=== PATIENT | male | born 1990 | race American Indian/Alaskan Native ===

== ENCOUNTER 2023-06-10 14:20 | Emergency (ER) | payer MEDICAID ==
[~2023-06-10] VITALS: Ht 182.9 cm; Wt 98.6 kg
[~2023-06-10 14:20] MED LIST: HYDR-4383 PO
[2023-06-10 14:23] VITALS: BP 163/106; PULSE 89; RESP 20; TEMP 97; O2SAT 96
== END 2023-06-10 15:00 | disposition home or self-care (01) ==
LOC: ER 14:20
DX: F10.20 Alcohol dependence, uncomplicated (principal); F12.90 Cannabis use, unspecified, uncomplicated; Y90.9 Presence of alcohol in blood, level not specified
CPT/HCPCS: 99281

== ENCOUNTER 2024-12-14 11:20 | Emergency (ER) | payer MEDICAID ==
[~2024-12-14] VITALS: Ht 182.9 cm; Wt 91.0 kg
[2024-12-14 11:29] VITALS: BP 165/107; PULSE 87; RESP 18; O2SAT 99
--- NOTE | 2024-12-14 12:16 | RADIOLOGY REPORT ---
EXAM: DI SHOULDER, COMPLETE (MIN 2 VWS) HISTORY: pain COMPARISON: None TECHNIQUE: 2 views of the left shoulder were performed. FINDINGS: No acute fracture or dislocation are identified about the left shoulder. There is mild acromioclavic ular hypertrophy without significant loss of subacromial space. IMPRESSION: 1. No fracture of the left shoulder. 2. Mild acromioclavicular hypertrophy.
--- NOTE | 2024-12-14 12:22 | Physician Documentation ---
History of Present Illness ~ Chief Complaint: Shoulder pain Stated Complaint: SHOULDER PAIN Time Seen by MD: 11:56 Primary Medical Doctor: SAMI ARELLANO HPI 34-year-old male with a history of chronic left shoulder pain presents to the emergency department reporting that the episodes of pain has been more frequent. He denies recent injury, but notes that he has worked hard his whole life. Tetanus within 5 years?: Yes Medication Reconciliation Allergies: Coded Allergies: No Known Allergies (Unverified , 12/12/23) Scheduled Ibuprofen* (Motrin*), 800 MG PO Q8H Triamcinolone Acetonide 0.5% Crm* (Kenalog 0.5% Crm*), 1 APPLIC TOP Q12H Scheduled PRN Hydrocodone/Acetaminophen ([place] 5-325 Tablet), 1 TABLET PO TID PRN for pain Review of Systems ROS As stated above in the HPI, otherwise all systems are reviewed and negative. Physical Exam Vital Signs: Temperature: 98.3, Source: Oral, Heart Rate: 87, Respiratory Rate: 18, BP: 165/107, Pulse Oximetry: 99, Weight: 91.000 Physical Exam General: Alert, no apparent distress. HEENT: PERRL, EOMI, no injection, moist mucous membranes. Neck: Full range of motion. Respiratory: Lungs clear, no respiratory distress. Chest: No accessory muscle use. Cardiovascular: Regular rate and rhythm, no murmurs. Gastrointestinal: Soft, nontender, nondistended. Bowels sounds present. Extremities: Mildly reduced left shoulder range of motion. Strong radial pulse. Neurologic: Oriented x4. Psychiatric: Normal mood and affect. Skin: Normal color, warm and dry. No edema, no ecchymosis. Progress Results/Orders Results/Orders Orders - STEFANIE CANTU NP Shoulder, Complete (Min 2 Vws) (12/14/24 11:55) Completed Orders - STEFANIE CANTU NP Shoulder, Complete (Min 2 Vws) (12/14/24 11:55) Vital Signs 12/14/24 12/14/24 11:29 12:43 Temp 98.3 98.3 Pulse 87 Resp 18 B/P (MAP) 165/107 Pulse Ox 99 EKG/XRAY/CT/US/VASC/MRI Bone/Soft Tissue X-Ray (Spine) : Additional Comment DIAGNOSTIC RADIOLOGY Patient: PLACIDO PERAZA Medical Record: [id number] [facility] : 1990, Age: 34 Sex: Male Location: ER Patient Status: REG ER Service Date/Time: 12/14/241154 Ordering Physician: STEFANIE CANTU NP Exam: SHOULDER, COMPLETE (MIN 2 VWS) EXAM: DI SHOULDER, COMPLETE (MIN 2 VWS) HISTORY: pain COMPARISON: None TECHNIQUE: 2 views of the left shoulder were performed. FINDINGS: No acute fracture or dislocation are identified about the left shoulder. There is mild acromioclavicular hypertrophy without significant loss of subacromial space. IMPRESSION: 1. No fracture of the left shoulder. 2. Mild acromioclavicular hypertrophy. Electronically Signed by:ANNIE MARK MD Date & Time: 12/14/241212 Dictated by: ANNIE MARK MD Dictation date and time: 12/14/241212 Primary Care Provider: NO PRIMARY CARE PROVIDER cc: STEFANIE CANTU NP ~ Medical Decision Making Additional Comments This appears to be an impingement syndrome. Discussed with the patient that he would benefit from a referral to physical therapy, and then potentially a referral for an hr specialist consultation and an MRI if improvement was not seen. Meanwhile, he may use ibuprofen as needed for pain, and should gently exercise the shoulder to avoid frozen shoulder. He is to return if worse. Departure Time of Disposition: 12:21 Disposition: 01 HOME / SELF CARE / HOMELESS Impression: Primary Impression: Shoulder pain Qualified Codes: M25.512 - Pain in left shoulder; G89.29 - Other chronic pain Additional Impressions: Impingement syndrome of left shoulder Rash Condition: Stable Discharge Instructions: Contact Dermatitis, Shoulder Impingement Syndrome, Shoulder Pain Additional Instructions: Please see your primary care provider soon and request a referral to physical therapy. If this is the 1st needed steps before further intervention such as an MRI or a referral to an orthopedist. You may use ibuprofen 800 mg up to 3 times a day with food for the next week as needed for pain. See the attached handout with instructions for exercises. Please return if worse. Referrals: NO PRIMARY CARE PROVIDER (PCP) Prescriptions Ibuprofen* (Motrin*) 400 Mg Tablet 800 MG PO Q8H for 14 Days, #60 TAB Prov: STEFANIE CANTU NP 12/14/24 Triamcinolone Acetonide 0.5% Crm* (Kenalog 0.5% Crm*) 15 Gm Tube 1 APPLIC TOP Q12H for 14 Days, #15 GM apply to affected area(s) Prov: STEFANIE CANTU NP 12/14/24 Education Educated: Patient Educated regarding: diagnosis, treatment, prognosis, need for follow up Signature Scribe Signature: No scribe Attestation: The note accurately reflects work and decisions made by me.Stefanie Walker NP 12/14/24 12:51 STEFANIE CANTU NP December 14, 2024 12:22
[2024-12-14] MEDS ORDERED: IBUP-1984 PO (12:26)
[2024-12-14] MEDS ORDERED: TRIA15CR61 TOP (12:26)
[2024-12-14 12:43] VITALS: TEMP 98.3
== END 2024-12-14 12:44 | disposition home or self-care (01) ==
LOC: ER 11:21
DX: M75.42 Impingement syndrome of left shoulder (principal); G89.29 Other chronic pain; M25.512 Pain in left shoulder; R21 Rash and other nonspecific skin eruption; Z79.899 Other long term (current) drug therapy
CPT/HCPCS: 73030; 99283